=== PATIENT | female | born 1990 | race Two or more races ===

== ENCOUNTER 2017-08-09 15:07 | Inpatient (IN) | payer OTHER ==
[2017-08-09 16:21] VITALS: BMI 34.0
--- NOTE | 2017-08-09 16:35 | HP ---
Admission ROS [facility] - [facility] Chief Complaint: i am here for rehab from pcp and marijuana Allergies/Adverse Reactions: Allergies Allergy/AdvReac Type Severity Reaction Status Date / Time No Known Allergies Allergy Verified 08/09/17 16:20 History of Present Illness: this 26 years old female with pcp and marijuana dependence,seeking rehab,last treatment [facility] in 2014 nicotine dependence bipolar disorder - Ebola screening Have you traveled outside of the country in the last 21 days: No Have you had contact with anyone from an Ebola affected area: No Have you been sick,other than usual withdrawal symptoms: No Do you have a fever: No - Review of Systems Constitutional: No Symptoms Reported EENT: reports: No Symptoms Reported Respiratory: reports: No Symptoms reported Cardiac: reports: No Symptoms Reported GI: reports: No Symptoms Reported : reports: No Symptoms Reported Musculoskeletal: reports: No Symptoms Reported Integumentary: reports: No Symptoms Reported Neuro: reports: No Symptoms reported Endocrine: reports: No Symptoms Reported Hematology: reports: No Symptoms Reported Psychiatric: reports: No Sypmtoms Reported, Judgement Intact, Mood/Affect Appropiate, Orientated x3 (bipolar disorder) Patient History - Patient Medical History Hx Anemia: No Hx Asthma: No Hx Chronic Obstructive Pulmonary Disease (COPD): No Hx Cancer: No Hx Cardiac Disorders: No Hx Hypertension: No Hx Hypercholesterolemia: No Hx Pacemaker: No HX Cerebrovascular Accident: No Hx Seizures: No Hx Diabetes: No Hx Gastrointestinal Disorders: Yes (GASTRITIS) Hx Genitourinary Disorders: Yes (RENAL CALCULI) Hx Sexually Transmitted Disorders: No Hx Renal Disease (ESRD): No Hx Thyroid Disease: No Hx Human Immunodeficiency Virus (HIV): No Hx Hepatitis C: No Hx Depression: Yes (AND ANXIETY) Hx Suicide Attempt: Yes (pill overdose in 2005) Hx Bipolar Disorder: Yes Hx Schizophrenia: No Other Medical History: no suicidal,no homicidal - Patient Surgical History Past Surgical History: No Hx Neurologic Surgery: No Hx Cataract Extraction: No Hx Cardiac Surgery: No Hx Lung Surgery: No Hx Breast Surgery: No Hx Breast Biopsy: No Hx Abdominal Surgery: No Hx Appendectomy: No Hx Cholecystectomy: No Hx Genitourinary Surgery: No Hx Section: No Hx Orthopedic Surgery: No Anesthesia Reaction: No - PPD History Previous Implant?: Yes Documented Results: Negative w/o proof Date: 12/31/12 PPD to be Administered?: Yes - Reproductive History Patient is a Female of Child Bearing Age (11 -55 yrs old): Yes Last Menstrual Period: 07/07/17 Patient : No - Smoking Cessation Smoking history: Current every day smoker Have you smoked in the past 12 months: Yes Aproximately how many cigarettes per day: 5 Hx Chewing Tobacco Use: No Initiated information on smoking cessation: Yes 'Breaking Loose' booklet given: 08/09/17 - Substance & Tx. History Hx Alcohol Use: No Hx Substance Use: Yes Substance Use Type: Marijuana Hx Substance Use Treatment: Yes ([facility] 2014) - Substances Abused PCP Route: Smoking Frequency: 3-6 times per week Amount used: 5-6 blunts Age of first use: 19 Date of Last Use: 08/05/17 Marijuana/Hashish Route: Smoking Frequency: 1-2 times per week Amount used: 1-2 blunts Age of first use: 14 Date of Last Use: 08/08/17 Family Disease History - Family Disease History Family History: Denies Admission Physical Exam [facility] - Vital Signs Vital Signs: Vital Signs - 24 hr 08/09/17 16:16 Temperature 97.4 F L Pulse Rate 79 Respiratory 20 Rate Blood Pressure 121/70 - Physical General Appearance: Yes: Within Normal Limits HEENTM: Yes: Normal ENT Inspection, AYALA, Pharynx Normal Respiratory: Yes: Lungs Clear, Normal Breath Sounds, No Respiratory Distress Neck: Yes: Within Normal Limits, Supple, Trachea in good position Breast: Yes: Breast Exam Deferred Cardiology: Yes: Within Normal Limits, Regular Rhythm, Regular Rate, S1, S2 Abdominal: Yes: Within Normal Limits, Normal Bowel Sounds, Non Tender, Flat, Soft Genitourinary: Yes: Within Normal Limits Back: Yes: Within Normal Limits Musculoskeletal: Yes: Within Normal Limits Extremities: Yes: Normal Capillary Refill, Normal Inspection, Normal Range of Motion Neurological: Yes: mangle tender II-XII NML intact, Alert, Motor Strength 5/5 Integumentary: Yes: Within Normal Limits Lymphatic: Yes: Within Normal Limits - Diagnostic (1) Cannabis dependence Current Visit: No Status: Active (2) Gastritis Current Visit: No Status: Active (3) MDMA DEPENDENCE Current Visit: No Status: Active (4) PCP DEPENDENCE Current Visit: No Status: Active (5) Nicotine dependence Current Visit: Yes Status: Acute (6) Renal calculus Current Visit: Yes Status: Acute Cleared for Admission [facility] - Detox or Rehab Claeared for Rehab Admission: Yes [facility] Breath Alcohol Content Breath Alcohol Content: 0 Urine Pregancy Test - Result Urine Test Results: Negative- NO Line Present Urine Drug Screen - Results Drug Screen Negative: No Urine Drug Screen Results: THC-Marijuana, PCP-Phencyclidine Inpatient Rehab Admission - Initial Determination Are CD services needed?: Yes Free of communicable disease: Yes Not in need of hospitalization: Yes - Rehab Admission Criteria Poor recovery environment: Yes Comorbidities: Yes Patient is meeting Inpatient Rehab admission criteria:: Yes
[2017-08-09] MEDS ORDERED: P-EPHED 60MG/TRIPROLIDI 2.5MG TABLET PO PRN (16:45)
[2017-08-09] MEDS ORDERED: MAGNESIUM CITRATE 300 ML BOTTLE PO PRN (16:45)
[2017-08-09] MEDS ORDERED: MAGNESIUM HYDROX 2400MG/30ML ORAL SUSPENSION 30 ML CUP PO PRN (16:45)
[2017-08-09] MEDS ORDERED: LOPERAMIDE HCL 2 MG CAPSULE PO PRN (16:45)
[2017-08-09] MEDS ORDERED: MENTHOL/PHENOL 1 EACH UD MM PRN (16:45)
[2017-08-09] MEDS ORDERED: guaiFENesin/D-METHORPHAN HB 10 ML UNIT-DOSE CUPS PO PRN (16:45)
[2017-08-09] MEDS ORDERED: MAG HYDROX/AL HYDROX/SIMETH 30 ML UNIT-DOSE CUP PO PRN (16:45)
[2017-08-09] MEDS ORDERED: TUBERCULIN PPD 5 TU/0.1ML VIAL ID ONE (18:36)
[2017-08-09 20:29] LABS: URINE APPEARANCE CLOUDY; URINE BILIRUBIN NEGATIVE (NEGATIVE); URINE BLOOD NEGATIVE (NEGATIVE); URINE COLOR YELLOW; URINE GLUCOSE (UA) NEGATIVE (NEGATIVE); URINE KETONE NEGATIVE (NEGATIVE); URINE NITRITE NEGATIVE (NEGATIVE); URINE PROTEIN NEGATIVE (NEGATIVE); URINE UROBILINOGEN NEGATIVE mg/dL (0.2-1.0)
[2017-08-09] MEDS: THIAMINE HCL 100 MG TABLET (FP) PO SCH (21:49)
[2017-08-09 21:55] LABS: URINE LEUK ESTERASE Negative (NEGATIVE)
[2017-08-09] MEDS: QUEtiapine FUMARATE 50 MG TABLET PO SCH (23:00)
--- NOTE | 2017-08-09 23:44 | PN ---
[facility] Progress Note Note: Psychiatry Attending's property economist note : Informed by nurse of this new admission to unit. Asked to enter orders for buspar + depakote + seroquel. Case of 26 y/o female with Bipolar Disorder. Co-morbidities : marihuana,phencyclidine and nicotine dependence. Ms Agee reports OPD care at [facility] ([facility]). Claims : buspar 5 mg po tid depakote 500 mg po am + 750 mg po hs seroquel 50 mg po hs. Verified by recent scripts (filled at [facility] on 07/23/17). Patient endorses adherence to medications.Interviewed via telephone. Conversant,calm and appropriate.Cooperative.Complaints : none.Normal vitals. Plan as follows : Hold depakote until specimen drawn for valproic acid level. Resume buspar and seroquel (at doses mentioned above). Side effects/benefits : discussed with the patient. [facility] report : read and appreciated. test is negative. Discussed with nurse on duty.Patient agrees with careplan.
[2017-08-10] MEDS: busPIRone HCL 5 MG TABLET PO SCH ×3 (07:06→21:32)
[2017-08-10] MEDS: PRENATAL VITAMINS W/ FOLIC ACID TABLET (FP) PO SCH (10:14)
[2017-08-10 11:04] LABS: MCH 21.2 pg (25.7-33.7); MCHC 31.1 g/dl (32.0-36.0); MEAN CELL VOLUME 68.1 fl (80-96); PLATELET COUNT 284 K/MM3 (134-434); WHITE BLOOD COUNT 11.3 K/mm3 (4.0-10.0)
[2017-08-10 11:06] LABS: ALBUMIN 2.8 g/dl (3.4-5.0); ANION GAP 6 (8-16); CO2 26 mmol/L (21-32); CREATININE 0.6 mg/dL (0.55-1.02); GLUCOSE,RANDOM 68 mg/dL (74-106); SGOT/AST 9 U/L (15-37); SGPT/ALT 19 U/L (12-78)
--- NOTE | 2017-08-10 12:33 | PN ---
S Progress Note Note: Psychiatry Attending's note : Met with the patient. Valproic acid level = 4.198 Abnormal CBC. NOT suitable for traetment with valproate. Medical consult to follow.
--- NOTE | 2017-08-10 12:52 | EKG ---
Test Reason : Blood Pressure : / mmHG Vent. Rate : 058 BPM Atrial Rate : 058 BPM P-R Int : 124 ms QRS Dur : 090 ms QT Int : 426 ms P-R-T Axes : 045 055 045 degrees QTc Int : 418 ms SINUS BRADYCARDIA NO PREVIOUS ECGS AVAILABLE Confirmed by ALMA CHAVIS MD ([id number]) on 08/10/2017 12:51:52 PM Referred By: Confirmed By:ALMA CHAVIS MD
[2017-08-10 12:54] LABS: ALK PHOS 58 U/L (45-117); BILIRUBIN,TOTAL 0.3 mg/dL (0.2-1.0); TOT PROT 5.9 g/dl (6.4-8.2)
[2017-08-10] MEDS ORDERED: PT OWN MED DRAWER 7, Y5N ONE (13:10)
[2017-08-10 13:26] LABS: HIV 1 & 2 AB NEGATIVE; HIV 1 AGp24 NEGATIVE
[2017-08-10 13:29] LABS: CALCIUM 7.8 mg/dL (8.5-10.1)
[2017-08-10] MEDS: THIAMINE HCL 100 MG TABLET (FP) PO SCH (21:31)
[2017-08-10] MEDS: QUEtiapine FUMARATE 50 MG TABLET PO SCH (21:31)
[2017-08-10] MEDS ORDERED: QUEtiapine FUMARATE 50 MG TABLET PO SCH (22:00)
[2017-08-11] MEDS ORDERED: PT OWN MED DRAWER 7, Y5N ONE ×2 (05:39→12:45)
[2017-08-11] MEDS: busPIRone HCL 5 MG TABLET PO SCH ×3 (06:59→21:24)
[2017-08-11] MEDS: PRENATAL VITAMINS W/ FOLIC ACID TABLET (FP) PO SCH (09:14)
[2017-08-11] MEDS: IBUPROFEN 400 MG TABLET (FP) PO PRN (09:14)
[2017-08-11] MEDS: ACETAMINOPHEN 325 MG TABLET (FP) PO PRN (12:30)
[2017-08-11] MEDS: THIAMINE HCL 100 MG TABLET (FP) PO SCH (21:24)
[2017-08-11] MEDS: QUEtiapine FUMARATE 50 MG TABLET PO SCH (21:24)
[2017-08-12] MEDS ORDERED: PT OWN MED DRAWER 7, Y5N ONE ×3 (05:49→15:50)
[2017-08-12] MEDS: busPIRone HCL 5 MG TABLET PO SCH (06:42)
[2017-08-12] MEDS: PRENATAL VITAMINS W/ FOLIC ACID TABLET (FP) PO SCH (09:55)
--- NOTE | 2017-08-12 11:04 | HP ---
Psychiatrist Admission - Data Date of interview: 08/12/17 Admission source: [facility] Identifying data: This is the first admission to [address] [place] [address] for this 26 years od single H female mother of 3 years old daughter(child resides with the patient's parents).Patient is homeless, unemployed,supported by family. Medical History: unremarkable Psychiatric History: First contact with psychiatrist was at 15 years old when she addressed her depressed mood,anxiety .Patient was seen by psychiatrist at [facility] OPD,dx with MDD and placed on Prozac which she was not taking.Reports she was dx with Bipolar disordetr about 3 years ago when she was admitted to [facility] due to manic episode.Patient was treated with Serqouel.She was placed on Depakote only about 1 year ago.Patient reports about 10 psychiatric hospitalizations.Most recent was 3 weeks ago to [facility] 3 weeks ago due to drug use and non compliance with medications.Patient reports about 4-5 suicidal attempts (DOD).Patient sees psychiatrist at [facility] OPD.Current medications:Depakote 500 mg po am and 750 mg po hs and Seroquel 50 mg po hs(recently adjusted to 100 mg po hs). Blood level of Depakote (drawn on saturday) is 4,198 (low). Physical/Sexual Abuse/Trauma History: not willing to discuss Vital Signs: Vital Signs - 24 hr 08/12/17 08/12/17 08/12/17 00:30 03:30 07:29 Temperature 97.9 F Pulse Rate 52 L Respiratory 16 16 18 Rate Blood Pressure 106/71 Allergies/Adverse Reactions: Allergies Allergy/AdvReac Type Severity Reaction Status Date / Time No Known Allergies Allergy Verified 08/09/17 16:20 Date of last physical exam: 08/09/17 Concur with the findings of this exam: Yes - Substance Abuse/Tx History Hx Alcohol Use: Yes Hx Substance Use: Yes Substance Use Type: Alcohol, Cocaine, Marijuana Hx Substance Use Treatment: Yes Mental Status Exam - Mental Status Exam Alert and Oriented to: Time, Place, Person Cognitive Function: Grossly Intact Patient Appearance: Well Groomed Mood: Nervous, Anxious Affect: Labile Patient Behavior: Cooperative Speech Pattern: Clear Voice Loudness: Normal Thought Process: Goal Oriented Thought Disorder: Not Present Hallucinations: Denies Suicidal Ideation: Denies Homicidal Ideation: Denies Insight/Judgement: Fair Sleep: Fair Appetite: Good Muscle strength/Tone: Normal Gait/Station: Normal Psychiatric Findings - Problem List ([place] 1, 2,3) (1) Nicotine dependence Current Visit: Yes Status: Chronic (2) Renal calculus Current Visit: Yes Status: Chronic (3) Alcohol dependence Current Visit: Yes Status: Chronic (4) Cannabis dependence Current Visit: Yes Status: Chronic (5) Gastritis Current Visit: Yes Status: Resolved (6) MDMA DEPENDENCE Current Visit: Yes Status: Chronic (7) PCP dependence Current Visit: Yes Status: Chronic - Initial Treatment Plan Initial Treatment Plan: Continue Depakote 500 mg po daily and 750 mg po hs and Seroquel 100 mg po hs,Buspar 5 mg po tid.
[2017-08-12] MEDS: DIVALPROEX SODIUM 500 MG TABLET E.C. PO SCH (12:08)
[2017-08-12] MEDS: busPIRone HCL 10 MG TABLET (FP) PO SCH ×2 (12:08→21:21)
[2017-08-12] MEDS: hydrOXYzine PAMOATE 50 MG CAPSULE (FP) PO PRN (17:56)
[2017-08-12] MEDS: THIAMINE HCL 100 MG TABLET (FP) PO SCH (21:21)
[2017-08-12] MEDS: QUEtiapine FUMARATE 100 MG TABLET (FP) PO SCH (21:22)
[2017-08-12] MEDS: DIVALPROEX SODIUM 250 MG TABLET E.C. (FP) PO SCH (21:22)
[2017-08-13] MEDS ORDERED: PT OWN MED DRAWER 7, Y5N ONE (08:30)
[2017-08-13] MEDS: PRENATAL VITAMINS W/ FOLIC ACID TABLET (FP) PO SCH (09:22)
[2017-08-13] MEDS: DIVALPROEX SODIUM 500 MG TABLET E.C. PO SCH (09:22)
[2017-08-13] MEDS: busPIRone HCL 10 MG TABLET (FP) PO SCH ×2 (09:22→21:29)
[2017-08-13] MEDS: IBUPROFEN 400 MG TABLET (FP) PO PRN (09:22)
[2017-08-13] MEDS: DIVALPROEX SODIUM 250 MG TABLET E.C. (FP) PO SCH (21:28)
[2017-08-13] MEDS: THIAMINE HCL 100 MG TABLET (FP) PO SCH (21:28)
[2017-08-13] MEDS: diphenhydrAMINE HCL 50 MG CAPSULE PO PRN (21:29)
[2017-08-13] MEDS: QUEtiapine FUMARATE 100 MG TABLET (FP) PO SCH (21:29)
[2017-08-14] MEDS: PRENATAL VITAMINS W/ FOLIC ACID TABLET (FP) PO SCH (10:15)
[2017-08-14] MEDS: busPIRone HCL 10 MG TABLET (FP) PO SCH ×2 (10:15→21:30)
[2017-08-14] MEDS: DIVALPROEX SODIUM 500 MG TABLET E.C. PO SCH (10:15)
[2017-08-14] MEDS: IBUPROFEN 400 MG TABLET (FP) PO PRN (12:46)
[2017-08-14] MEDS: QUEtiapine FUMARATE 100 MG TABLET (FP) PO SCH (21:30)
[2017-08-14] MEDS: THIAMINE HCL 100 MG TABLET (FP) PO SCH (21:30)
[2017-08-14] MEDS: DIVALPROEX SODIUM 250 MG TABLET E.C. (FP) PO SCH (21:30)
[2017-08-14] MEDS: diphenhydrAMINE HCL 50 MG CAPSULE PO PRN (21:31)
[2017-08-15] MEDS: busPIRone HCL 10 MG TABLET (FP) PO SCH ×2 (10:11→21:26)
[2017-08-15] MEDS: PRENATAL VITAMINS W/ FOLIC ACID TABLET (FP) PO SCH (10:11)
[2017-08-15] MEDS: DIVALPROEX SODIUM 500 MG TABLET E.C. PO SCH (10:11)
[2017-08-15] MEDS: THIAMINE HCL 100 MG TABLET (FP) PO SCH (21:26)
[2017-08-15] MEDS: QUEtiapine FUMARATE 100 MG TABLET (FP) PO SCH (21:26)
[2017-08-15] MEDS: DIVALPROEX SODIUM 250 MG TABLET E.C. (FP) PO SCH (21:26)
[2017-08-16] MEDS: busPIRone HCL 10 MG TABLET (FP) PO SCH ×2 (10:32→21:32)
[2017-08-16] MEDS: PRENATAL VITAMINS W/ FOLIC ACID TABLET (FP) PO SCH (10:32)
[2017-08-16] MEDS: DIVALPROEX SODIUM 500 MG TABLET E.C. PO SCH (10:32)
[2017-08-16] MEDS: IBUPROFEN 400 MG TABLET (FP) PO PRN (15:28)
[2017-08-16] MEDS: hydrOXYzine PAMOATE 50 MG CAPSULE (FP) PO PRN (20:07)
[2017-08-16] MEDS: DIVALPROEX SODIUM 250 MG TABLET E.C. (FP) PO SCH (21:32)
[2017-08-16] MEDS: THIAMINE HCL 100 MG TABLET (FP) PO SCH (21:32)
[2017-08-16] MEDS: QUEtiapine FUMARATE 100 MG TABLET (FP) PO SCH (21:32)
[2017-08-17] MEDS: busPIRone HCL 10 MG TABLET (FP) PO SCH ×2 (09:49→21:23)
[2017-08-17] MEDS: PRENATAL VITAMINS W/ FOLIC ACID TABLET (FP) PO SCH (09:49)
[2017-08-17] MEDS: DIVALPROEX SODIUM 500 MG TABLET E.C. PO SCH (09:49)
[2017-08-17] MEDS: hydrOXYzine PAMOATE 50 MG CAPSULE (FP) PO PRN (19:41)
[2017-08-17] MEDS: DIVALPROEX SODIUM 250 MG TABLET E.C. (FP) PO SCH (21:23)
[2017-08-17] MEDS: QUEtiapine FUMARATE 100 MG TABLET (FP) PO SCH (21:23)
[2017-08-17] MEDS: THIAMINE HCL 100 MG TABLET (FP) PO SCH (21:23)
[2017-08-17] MEDS: diphenhydrAMINE HCL 50 MG CAPSULE PO PRN (21:24)
[2017-08-18] MEDS: busPIRone HCL 10 MG TABLET (FP) PO SCH ×2 (10:05→21:25)
[2017-08-18] MEDS: DIVALPROEX SODIUM 500 MG TABLET E.C. PO SCH (10:05)
[2017-08-18] MEDS: PRENATAL VITAMINS W/ FOLIC ACID TABLET (FP) PO SCH (10:05)
[2017-08-18] MEDS: DIVALPROEX SODIUM 250 MG TABLET E.C. (FP) PO SCH (21:25)
[2017-08-18] MEDS: QUEtiapine FUMARATE 100 MG TABLET (FP) PO SCH (21:25)
[2017-08-18] MEDS: diphenhydrAMINE HCL 50 MG CAPSULE PO PRN (21:26)
[2017-08-18] MEDS: THIAMINE HCL 100 MG TABLET (FP) PO SCH (21:26)
[2017-08-18] MEDS ORDERED: PT OWN MED DRAWER 7, Y5N ONE (22:01)
[2017-08-19] MEDS: PRENATAL VITAMINS W/ FOLIC ACID TABLET (FP) PO SCH (10:29)
[2017-08-19] MEDS: busPIRone HCL 10 MG TABLET (FP) PO SCH ×2 (10:29→21:46)
[2017-08-19] MEDS: DIVALPROEX SODIUM 500 MG TABLET E.C. PO SCH (10:29)
[2017-08-19] MEDS: hydrOXYzine PAMOATE 50 MG CAPSULE (FP) PO PRN (11:40)
--- NOTE | 2017-08-19 12:44 | PN ---
Psychiatric Progress Note Vital Signs: Vital Signs Period Temp Pulse Resp BP Sys/Betts Pulse Ox Last 24 Hr 97.4 F 68 18-18 110/66 Date of Session: 08/19/17 Current Medications: Active Medications Generic Name Dose Route Start Last Admin Trade Name Freq PRN Reason Stop Dose Admin Acetaminophen 650 mg 08/09/17 16:45 08/11/17 12:30 Tylenol - PO 650 mg Q4H PRN Administration PAIN Al Hydroxide/Mg Hydroxide 30 ml 08/09/17 16:45 Mylanta Oral Suspension - PO Q6H PRN DYSPEPSIA Buspirone HCl 10 mg 08/12/17 11:30 08/19/17 10:29 Buspar - PO 10 mg BID JIMI Administration Diphenhydramine HCl 50 mg 08/09/17 16:45 08/18/17 21:26 Benadryl - PO 50 mg HSMR1 PRN Administration INSOMNIA Docusate Sodium 300 mg 08/19/17 22:00 Colace - PO HS JIMI Eucalyptus/Menthol/Phenol/Sorbitol 1 each 08/09/17 16:45 Cepastat Lozenge - MM Q4H PRN SORE THROAT Ferrous Sulfate 325 mg 08/19/17 17:30 Feosol - PO TIDCM JIMI Guaifenesin 10 ml 08/09/17 16:45 Robitussin Dm - PO Q6H PRN COUGH Hydroxyzine Pamoate 50 mg 08/09/17 16:45 08/19/17 11:40 Vistaril - PO 50 mg Q4H PRN Administration AGITATION Loperamide HCl 4 mg 08/09/17 16:45 Imodium - PO Q6H PRN DIARRHEA Magnesium Citrate 300 ml 08/09/17 16:45 Citroma - PO Q48H PRN CONSTIPATION Magnesium Hydroxide 30 ml 08/09/17 16:45 Milk Of Magnesia - PO DAILY PRN CONSTIPATION Multivit/Folic Acid/Iron 1 tab 08/10/17 10:00 08/19/17 10:29 Vitamins (Sjr) - PO 1 tab DAILY JIMI Administration Pseudoephedrine/Triprolidine 1 combo 08/09/17 16:45 Actifed - PO TID PRN NASAL CONGESTION Quetiapine Fumarate 100 mg 08/12/17 22:00 08/18/17 21:25 Seroquel - PO 100 mg HS JIMI Administration Thiamine HCl 100 mg 08/09/17 22:00 08/18/17 21:26 Vitamin B1 - PO 100 mg HS JIMI Administration
--- NOTE | 2017-08-19 12:44 | PN ---
[facility] Progress Note Note: Patient noted to have anemia on admission, d/w dr. Overton, will change to alternative mood stabilizer repeat labs with iron studies, iron supplements, folic acit and thiamine
--- NOTE | 2017-08-19 14:05 | PN ---
Psychiatric Progress Note Vital Signs: Vital Signs Period Temp Pulse Resp BP Sys/Betts Pulse Ox Last 24 Hr 97.4 F 68 18-18 110/66 Date of Session: 08/19/17 Chief Complaint:: " I cannot sleep at night.My dose of seroquel is not enough." HPI: Uneventful rehabilitation course except for complaint of insomnia.Not responding to current dose of seroquel. ROS: Unremarkable.Patient is ambulatory.Visible on the unit.Cognition : intact. Current Medications: Active Medications Generic Name Dose Route Start Last Admin Trade Name Freq PRN Reason Stop Dose Admin Acetaminophen 650 mg 08/09/17 16:45 08/11/17 12:30 Tylenol - PO 650 mg Q4H PRN Administration PAIN Al Hydroxide/Mg Hydroxide 30 ml 08/09/17 16:45 Mylanta Oral Suspension - PO Q6H PRN DYSPEPSIA Buspirone HCl 10 mg 08/12/17 11:30 08/19/17 10:29 Buspar - PO 10 mg BID JIMI Administration Diphenhydramine HCl 50 mg 08/09/17 16:45 08/18/17 21:26 Benadryl - PO 50 mg HSMR1 PRN Administration INSOMNIA Docusate Sodium 300 mg 08/19/17 22:00 Colace - PO HS JIMI Eucalyptus/Menthol/Phenol/Sorbitol 1 each 08/09/17 16:45 Cepastat Lozenge - MM Q4H PRN SORE THROAT Ferrous Sulfate 325 mg 08/19/17 17:30 Feosol - PO TIDCM JIMI Guaifenesin 10 ml 08/09/17 16:45 Robitussin Dm - PO Q6H PRN COUGH Hydroxyzine Pamoate 50 mg 08/09/17 16:45 08/19/17 11:40 Vistaril - PO 50 mg Q4H PRN Administration AGITATION Loperamide HCl 4 mg 08/09/17 16:45 Imodium - PO Q6H PRN DIARRHEA Magnesium Citrate 300 ml 08/09/17 16:45 Citroma - PO Q48H PRN CONSTIPATION Magnesium Hydroxide 30 ml 08/09/17 16:45 Milk Of Magnesia - PO DAILY PRN CONSTIPATION Multivit/Folic Acid/Iron 1 tab 08/10/17 10:00 08/19/17 10:29 Vitamins (Sjr) - PO 1 tab DAILY JIMI Administration Pseudoephedrine/Triprolidine 1 combo 08/09/17 16:45 Actifed - PO TID PRN NASAL CONGESTION Quetiapine Fumarate 200 mg 08/19/17 22:00 Seroquel - PO HS JIMI Thiamine HCl 100 mg 08/09/17 22:00 08/18/17 21:26 Vitamin B1 - PO 100 mg HS JIMI Administration Medication(s) Change(s): Seroquel is raised to 200 mg po hs.Side effects/ benefits are discussed with the patient.Ms Agee is in agreement with this careplan. Current Side Effect: No Lab tests ordered: Yes Lab tests reviewed: Yes Provider note:: Medications are revisited.Labs are reviewed.Abnormal CBC is noted.Discussed with the medical attending,Dr Patiño (see medical note of 08/19).Met with patient.Doing fine.Concerned about persistent insomnia.Patient requests an increase in the seroquel dose.Done.Strapper Operator has made patient aware of her abnormal labs.Informed patient of plan to discontinue valproate (in the context of anemia of unknown etiology).She agrees with this plan of care.Switch to an alternate mood stabilizer : currently being discussed with the patient. Total face to face time:: 30 Mental Status Exam - Mental Status Exam Alert and Oriented to: Time, Place, Person Cognitive Function: Good Patient Appearance: Well Groomed Mood: Hopeful, Euthymic Affect: Appropriate, Normal Range Patient Behavior: Appropriate, Cooperative Speech Pattern: Clear, Appropriate Voice Loudness: Normal Thought Process: Intact, Goal Oriented Thought Disorder: Not Present Hallucinations: Denies Suicidal Ideation: Denies Homicidal Ideation: Denies Insight/Judgement: Good Sleep: Poorly, Difficulty falling asleep Appetite: Good Muscle strength/Tone: Normal Gait/Station: Normal Psychiatric Treatment Plan - Problem List (1) Alcohol dependence Current Visit: Yes (2) Cannabis dependence Current Visit: Yes (3) MDMA DEPENDENCE Current Visit: Yes (4) Nicotine dependence Current Visit: Yes (5) PCP dependence Current Visit: Yes (6) Substance induced mood disorder Current Visit: Yes (7) Insomnia Current Visit: Yes
[2017-08-19] MEDS: FERROUS SO4 325 MG TABLET (FP) PO SCH (17:25)
[2017-08-19] MEDS: THIAMINE HCL 100 MG TABLET (FP) PO SCH (21:47)
[2017-08-19] MEDS: DOCUSATE SODIUM 100 MG CAPSULE (FP) PO SCH (21:48)
[2017-08-19] MEDS: QUEtiapine FUMARATE 200 MG TABLET PO SCH (21:48)
[2017-08-20] MEDS: FERROUS SO4 325 MG TABLET (FP) PO SCH ×3 (07:08→17:45)
[2017-08-20] MEDS: PRENATAL VITAMINS W/ FOLIC ACID TABLET (FP) PO SCH (09:39)
[2017-08-20] MEDS: busPIRone HCL 10 MG TABLET (FP) PO SCH ×2 (09:39→23:22)
[2017-08-20] MEDS ORDERED: PT OWN MED DRAWER 7, Y5N ONE (10:45)
[2017-08-20 15:55] LABS: ALBUMIN 2.9 g/dl (3.4-5.0); ANION GAP 5 (8-16); BILIRUBIN,TOTAL 0.2 mg/dL (0.2-1.0); CALCIUM 8.1 mg/dL (8.5-10.1); CO2 29 mmol/L (21-32); CREATININE 0.7 mg/dL (0.55-1.02); GLUCOSE,RANDOM 71 mg/dL (74-106); SGOT/AST 9 U/L (15-37); SGPT/ALT 22 U/L (12-78); TOT PROT 6.6 g/dl (6.4-8.2)
[2017-08-20 15:58] LABS: ALK PHOS 70 U/L (45-117); FERRITIN 6.634 ng/ml (6.9-282.5)
[2017-08-20 16:03] LABS: BASOPHIL 0.3 % (0-2.0); EOSINOPHIL 4.3 % (0-4.5); MCH 21.9 pg (25.7-33.7); MCHC 32.1 g/dl (32.0-36.0); MEAN CELL VOLUME 68.3 fl (80-96); MEAN PLT VOLUME 8.4 fl (7.5-11.1); NEUTROPHILS 50.1 % (42.8-82.8); PLATELET COUNT 330 K/MM3 (134-434); RDW 23.2 % (11.6-15.6); WHITE BLOOD COUNT 7.7 K/mm3 (4.0-10.0)
[2017-08-20] MEDS: ACETAMINOPHEN 325 MG TABLET (FP) PO PRN (17:09)
[2017-08-20 17:46] LABS: ANISOCYTOSIS 2+; HYPOCHROMIA 1+; MICROCYTOSIS 1+; PLATELET ESTIMATE ADEQUATE (NORMAL); POLYCHROMASIA F
--- NOTE | 2017-08-20 19:36 | PN ---
[facility] Progress Note Note: Patient was seen and examined at bedside with complaints rectal bleeding, lightheadedness and dizziness. She reports h/o anemia and significant rectal clots x 2 days. Patient's WBC on 08/10/17 was 11.3 k/mm3 and 08/20/17 is 7.7 k/ mm3. Patient is being transferred to [facility] ER for further evaluation. Endorsed to Ms. So Marquez RN and Jacques Zamora NP.
[2017-08-20] MEDS: THIAMINE HCL 100 MG TABLET (FP) PO SCH (23:22)
[2017-08-20] MEDS: DOCUSATE SODIUM 100 MG CAPSULE (FP) PO SCH (23:22)
[2017-08-20] MEDS: QUEtiapine FUMARATE 200 MG TABLET PO SCH (23:22)
[2017-08-21] MEDS: diphenhydrAMINE HCL 50 MG CAPSULE PO PRN (01:59)
[2017-08-21] MEDS: FERROUS SO4 325 MG TABLET (FP) PO SCH ×3 (07:02→16:20)
[2017-08-21 08:08] LABS: SERUM IRON 40 ug/dL (27-159); TOTAL IRON BINDING CAPACITY 421 ug/dL (250-450); UIBC 381 ug/dL (131-425)
[2017-08-21] MEDS: PRENATAL VITAMINS W/ FOLIC ACID TABLET (FP) PO SCH (10:21)
[2017-08-21] MEDS: busPIRone HCL 10 MG TABLET (FP) PO SCH ×2 (10:21→21:20)
[2017-08-21] MEDS: ACETAMINOPHEN 325 MG TABLET (FP) PO PRN (13:36)
[2017-08-21] MEDS: LURASIDONE HCL 20 MG TABLET PO SCH (16:20)
[2017-08-21] MEDS: QUEtiapine FUMARATE 200 MG TABLET PO SCH (21:20)
[2017-08-21] MEDS: DOCUSATE SODIUM 100 MG CAPSULE (FP) PO SCH (21:20)
[2017-08-21] MEDS: THIAMINE HCL 100 MG TABLET (FP) PO SCH (21:20)
[2017-08-22] MEDS: FERROUS SO4 325 MG TABLET (FP) PO SCH ×3 (07:02→18:25)
[2017-08-22] MEDS: PRENATAL VITAMINS W/ FOLIC ACID TABLET (FP) PO SCH (10:18)
[2017-08-22] MEDS: LURASIDONE HCL 20 MG TABLET PO SCH (10:18)
[2017-08-22] MEDS: busPIRone HCL 10 MG TABLET (FP) PO SCH ×2 (10:18→21:26)
--- NOTE | 2017-08-22 12:46 | PN ---
[facility] Progress Note Note: note h/h improved will re check 08/26 pt vs stable fu labs Vital Signs - 24 hr 08/22/17 08/22/17 08/22/17 00:30 03:30 07:26 Temperature 97.4 F L Pulse Rate 49 L Respiratory 18 18 18 Rate Blood Pressure 116/75 Laboratory Tests 08/09/17 08/10/17 08/10/17 19:00 08:00 08:00 WBC 11.3 H RBC 4.11 Hgb 8.7 L D Hct 28.0 L D MCV 68.1 L MCH 21.2 L MCHC 31.1 L RDW 22.0 H D Plt Count 284 MPV 9.0 Neutrophils % Lymphocytes % Monocytes % Eosinophils % Basophils % Hypochromia Platelet Estimate Platelet Comment Polychromasia Anisocytosis Microcytosis Sodium 139 Potassium 4.0 Chloride 107 Carbon Dioxide 26 Anion Gap 6 L BUN 11 D Creatinine 0.6 Creat Clearance w eGFR > 60 Random Glucose 68 L Calcium 7.8 L Iron TIBC Iron Saturation Ferritin Total Bilirubin 0.3 D AST 9 L D ALT 19 D Alkaline Phosphatase 58 D Total Protein 5.9 L Albumin 2.8 L D Urine Color Yellow Urine Appearance Cloudy Urine pH 6.0 Ur Specific Crescent 1.020 Urine Protein Negative Urine Glucose (UA) Negative Urine Ketones Negative Urine Blood Negative Urine Nitrite Negative Urine Bilirubin Negative Urine Urobilinogen Negative Ur Leukocyte Esterase Negative Valproic Acid RPR Titer HIV 1&2 Antibody Screen HIV P24 Antigen 08/10/17 08/10/17 08/10/17 08:00 08:00 08:00 WBC RBC Hgb Hct MCV MCH MCHC RDW Plt Count MPV Neutrophils % Lymphocytes % Monocytes % Eosinophils % Basophils % Hypochromia Platelet Estimate Platelet Comment Polychromasia Anisocytosis Microcytosis Sodium Potassium Chloride Carbon Dioxide Anion Gap BUN Creatinine Creat Clearance w eGFR Random Glucose Calcium Iron TIBC Iron Saturation Ferritin Total Bilirubin AST ALT Alkaline Phosphatase Total Protein Albumin Urine Color Urine Appearance Urine pH Ur Specific Crescent Urine Protein Urine Glucose (UA) Urine Ketones Urine Blood Urine Nitrite Urine Bilirubin Urine Urobilinogen Ur Leukocyte Esterase Valproic Acid 4.198 L RPR Titer Nonreactive HIV 1&2 Antibody Screen Negative HIV P24 Antigen Negative 08/20/17 08/20/17 08/20/17 09:00 09:00 09:00 WBC 7.7 D RBC 4.58 Hgb 10.0 L D Hct 31.3 L MCV 68.3 L MCH 21.9 L MCHC 32.1 RDW 23.2 H Plt Count 330 MPV 8.4 Neutrophils % 50.1 Lymphocytes % 38.7 Monocytes % 6.6 Eosinophils % 4.3 Basophils % 0.3 Hypochromia 1+ Platelet Estimate Adequate Platelet Comment No clumping noted Polychromasia F Anisocytosis 2+ Microcytosis 1+ Sodium 140 Potassium 4.3 Chloride 106 Carbon Dioxide 29 Anion Gap 5 L BUN 15 D Creatinine 0.7 Creat Clearance w eGFR > 60 Random Glucose 71 L Calcium 8.1 L Iron 40 TIBC 421 Iron Saturation 10 L Ferritin 6.634 L Total Bilirubin 0.2 D AST 9 L ALT 22 Alkaline Phosphatase 70 D Total Protein 6.6 Albumin 2.9 L Urine Color Urine Appearance Urine pH Ur Specific Crescent Urine Protein Urine Glucose (UA) Urine Ketones Urine Blood Urine Nitrite Urine Bilirubin Urine Urobilinogen Ur Leukocyte Esterase Valproic Acid RPR Titer HIV 1&2 Antibody Screen HIV P24 Antigen
[2017-08-22] MEDS: QUEtiapine FUMARATE 200 MG TABLET PO SCH (21:26)
[2017-08-22] MEDS: THIAMINE HCL 100 MG TABLET (FP) PO SCH (21:26)
[2017-08-22] MEDS: DOCUSATE SODIUM 100 MG CAPSULE (FP) PO SCH (21:26)
[2017-08-23] MEDS: FERROUS SO4 325 MG TABLET (FP) PO SCH (07:13)
[2017-08-23 07:26] VITALS: BP 111/72; PULSE 64; TEMP 97.7
--- NOTE | 2017-08-23 08:49 | PN ---
Psychiatric Progress Note Vital Signs: Vital Signs Period Temp Pulse Resp BP Sys/Betts Pulse Ox Last 24 Hr 97.7 F 64 16-18 111/72 Date of Session: 08/23/17 Chief Complaint:: Discharge visit Current Medications: Active Medications Generic Name Dose Route Start Last Admin Trade Name Freq PRN Reason Stop Dose Admin Acetaminophen 650 mg 08/09/17 16:45 08/21/17 13:36 Tylenol - PO 650 mg Q4H PRN Administration PAIN Al Hydroxide/Mg Hydroxide 30 ml 08/09/17 16:45 Mylanta Oral Suspension - PO Q6H PRN DYSPEPSIA Buspirone HCl 10 mg 08/12/17 11:30 08/22/17 21:26 Buspar - PO 10 mg BID JIMI Administration Diphenhydramine HCl 50 mg 08/09/17 16:45 08/21/17 01:59 Benadryl - PO 50 mg HSMR1 PRN Administration INSOMNIA Docusate Sodium 300 mg 08/19/17 22:00 08/22/17 21:26 Colace - PO 300 mg HS JIMI Administration Eucalyptus/Menthol/Phenol/Sorbitol 1 each 08/09/17 16:45 Cepastat Lozenge - MM Q4H PRN SORE THROAT Ferrous Sulfate 325 mg 08/19/17 17:30 08/23/17 07:13 Feosol - PO 325 mg TIDCM JIMI Administration Guaifenesin 10 ml 08/09/17 16:45 Robitussin Dm - PO Q6H PRN COUGH Hydroxyzine Pamoate 50 mg 08/09/17 16:45 08/19/17 11:40 Vistaril - PO 50 mg Q4H PRN Administration AGITATION Loperamide HCl 4 mg 08/09/17 16:45 Imodium - PO Q6H PRN DIARRHEA Lurasidone HCl 20 mg 08/21/17 14:38 08/22/17 10:18 Latuda - PO 20 mg DAILY JIMI Administration Magnesium Citrate 300 ml 08/09/17 16:45 Citroma - PO Q48H PRN CONSTIPATION Magnesium Hydroxide 30 ml 08/09/17 16:45 Milk Of Magnesia - PO DAILY PRN CONSTIPATION Multivit/Folic Acid/Iron 1 tab 08/10/17 10:00 08/22/17 10:18 Vitamins (Sjr) - PO 1 tab DAILY JIMI Administration Pseudoephedrine/Triprolidine 1 combo 08/09/17 16:45 Actifed - PO TID PRN NASAL CONGESTION Quetiapine Fumarate 200 mg 08/19/17 22:00 08/22/17 21:26 Seroquel - PO 200 mg HS JIMI Administration Thiamine HCl 100 mg 08/09/17 22:00 08/22/17 21:26 Vitamin B1 - PO 100 mg HS JIMI Administration Current Side Effect: No Lab tests ordered: No Lab tests reviewed: Yes Provider note:: Seroquel 200 mg po hs,Latuda 20 mg po daily and Buspar 10 mg po bid. Total face to face time:: 30 Psychiatric Treatment Plan - Problem List (1) Nicotine dependence Current Visit: Yes (2) Renal calculus Current Visit: Yes (3) Alcohol dependence Current Visit: Yes (4) Cannabis dependence Current Visit: Yes (5) Gastritis Current Visit: Yes (6) MDMA DEPENDENCE Current Visit: Yes (7) PCP dependence Current Visit: No
[2017-08-23] MEDS: PRENATAL VITAMINS W/ FOLIC ACID TABLET (FP) PO SCH (09:00)
[2017-08-23] MEDS: LURASIDONE HCL 20 MG TABLET PO SCH (09:00)
[2017-08-23] MEDS: busPIRone HCL 10 MG TABLET (FP) PO SCH (09:00)
== END 2017-08-23 09:05 | disposition home or self-care (01) | DRG 772 ==
LOC: EDBD → YASAS 15:07 → Y3E 17:02
PROVIDERS: ADMIT Psychiatry & Neurology Psychiatry; ATTEND Psychiatry & Neurology Psychiatry
PROC: HZ42ZZZ Group Counseling for Substance Abuse Treatment, Cognitive-Behavioral (ICD-10-PCS; principal; 2017-08-09)
DX: F10.20 Alcohol dependence, uncomplicated (principal); F16.20 Hallucinogen dependence, uncomplicated; F12.20 Cannabis dependence, uncomplicated; F17.210 Nicotine dependence, cigarettes, uncomplicated; F19.24 Other psychoactive substance dependence with psychoactive substance-induced mood disorder; K62.5 Hemorrhage of anus and rectum; G47.00 Insomnia, unspecified; D64.9 Anemia, unspecified; Z87.442 Personal history of urinary calculi; Z87.19 Personal history of other diseases of the digestive system; Z91.5 Personal history of self-harm
CPT/HCPCS: 36415; 80053; 80164; 81003; 82728; 83540; 83550; 85025; 85027; 86593; 87389; 93005; 93010

== ENCOUNTER 2017-08-20 20:37 | Emergency (ER) | payer OTHER ==
[2017-08-20 20:53] VITALS: TEMP 98.3; BMI 71.5
[2017-08-20] MEDS ORDERED: SODIUM CHLORIDE 1,000 ML IV STA (22:14)
--- NOTE | 2017-08-20 22:17 | PDOC ---
History of Present Illness - General Chief Complaint: Rectal Bleed Stated Complaint: RECTAL BLEED Time Seen by Provider: 08/20/17 22:04 History Source: Patient Exam Limitations: No Limitations - History of Present Illness Travel History: No Initial Comments: 08/20/17 22:37 26yo Female patient w/ PmHx: Substance Abuse (PCP), Blood transfusion, Anemia presents to ED c/o rectal bleeding x 2 days. Patient states she was admitted to [facility] rehab 11 days ago. She had initial blood work at this time, which showed her blood levels were low. Patient had blood work repeated 3 days ago, which showed "levels" were lower. She subsequently developed rectal bleeding around this time. Patient was sent into ED from [facility] for evaluation. Associated Epigastric pain. LNMP: 3 days ago. Past History - Travel Traveled outside of the country in the last 30 days: No Close contact w/someone who was outside of country & ill: No - Past Medical History Allergies/Adverse Reactions: Allergies Allergy/AdvReac Type Severity Reaction Status Date / Time No Known Allergies Allergy Verified 08/20/17 20:51 Home Medications: Ambulatory Orders Buspirone HCl [Buspar -] 5 mg PO TID 08/09/17 Quetiapine Fumarate [Seroquel -] 50 mg PO HS 08/09/17 Anemia: No Asthma: No Cancer: No Cardiac Disorders: No CVA: No COPD: No Diabetes: No GI Disorders: No Disorders: No HTN: No Hypercholesterolemia: No Kidney Stones: No Seizures: No Thyroid Disease: No - Surgical History Abdominal Surgery: No Appendectomy: No Cardiac Surgery: No Cholecystectomy: No Lung Surgery: No Neurologic Surgery: No Orthopedic Surgery: No - Reproductive History PID: No - Suicide/Smoking/Psychosocial Hx Smoking History: Unknown if ever smoked Have you smoked in the past 12 months: Yes Number of Cigarettes Smoked Daily: 5 Information on smoking cessation initiated: No 'Breaking Loose' booklet given: 08/09/17 Hx Alcohol Use: No Drug/Substance Use Hx: No Substance Use Type: Alcohol, Cocaine, Marijuana Hx Substance Use Treatment: Yes Abd/GI Specific PMHX - Complaint Specific PMHX Hepatitis: No Pancreatitis: No Review of Systems - Review of Systems Able to Perform ROS?: Yes Is the patient limited Malagasy proficient: No ABD/GI: Yes: Blood Streaked Bowels, Rectal Bleeding, Abdominal cramping. No: Constipated, Diarrhea, Nausea, Poor Appetite, Poor Fluid Intake, Vomiting Musculoskeletal: No: Back Pain All Other Systems: Reviewed and Negative *Physical Exam - Vital Signs Last Vital Signs Temp Pulse Resp BP Pulse Ox 98.3 F 64 14 114/69 100 08/20/17 20:51 08/20/17 20:51 08/20/17 20:51 08/20/17 20:51 08/20/17 20:51 - Physical Exam General Appearance: Yes: Nourished, Appropriately Dressed. No: Apparent Distress, Mild Distress, Moderate Distress, Severe Distress Neck: positive: Trachea midline, Supple. negative: Rigid, Stridor, Lymphadenopathy (R), Lymphadenopathy (L), Tender lateral, Tender midline Respiratory/Chest: positive: Lungs Clear, Normal Breath Sounds. negative: Chest Tender, Respiratory Distress, Accessory Muscle Use, Labored Respiration, Rapid RR, Decreased Breath Sounds, Rhonchi, Stridor, Wheezing Cardiovascular: positive: Regular Rhythm, Regular Rate Gastrointestinal/Abdominal: positive: Normal Bowel Sounds, Soft. negative: Tender, Pulsatile Mass, Increased Bowel Sounds, Decreased BS, Distended, Guarding, Rebound, Tenderness Rectal Exam: positive: heme negative stool, hemorrhoids (External) Musculoskeletal: positive: Normal Inspection. negative: CVA Tenderness Extremity: positive: Normal Capillary Refill, Normal Inspection, Normal Range of Motion. negative: Coldness, Pedal Edema, Swelling, Calf Tenderness, Erythema , Inflammation Integumentary: positive: Normal Color, Dry, Warm. negative: Cyanotic, Erythema , Rash, Swelling Neurologic: positive: bookstore clerk II-XII NML intact, Fully Oriented, Alert, Normal Mood/ Affect, Normal Response, Motor Strength 5/5 ED Treatment Course - LABORATORY CBC & Chemistry Diagram: 08/20/17 22:30 08/20/17 22:30 - RADIOLOGY Radiology Studies Ordered: Category Date Time Status ABDOMEN & PELVIS CT W/O CONTR [CT] Stat CT Scan 08/20/17 22:14 Ordered Medical Decision Making - Medical Decision Making 08/21/17 00:46 Spoke with ANGELINE Archer. Discussed labs, radiology reports. Patient to be transported back to [facility]. Patient to have outpatient follow-up with GI. *DC/Admit/Observation/Transfer Diagnosis at time of Disposition: External hemorrhoid, PCP dependence - Discharge Dispostion Disposition: TRANSFER ACUTE CARE/OTHER HOSP Condition at time of disposition: Stable Admit: No - Referrals Referrals: Guilherme Cleveland MD [Staff Physician] - - Patient Instructions Printed Discharge Instructions: DI for Hemorrhoids, DI for Rectal Bleeding Additional Instructions: Follow up with Dr. Cleveland (Gastroenterology) this week to schedule follow up appointment. Return if symptoms worsen or any concerns for further evaluation. Print Language: KOREAN
[2017-08-20 22:40] LABS: BASOPHIL 0.8 % (0-2.0); EOSINOPHIL 3.4 % (0-4.5); MCH 22.2 pg (25.7-33.7); MEAN CELL VOLUME 67.3 fl (80-96); MEAN PLT VOLUME 8.8 fl (7.5-11.1); NEUTROPHILS 59.5 % (42.8-82.8); PLATELET COUNT 345 K/MM3 (134-434); RDW 22.7 % (11.6-15.6); WHITE BLOOD COUNT 8.6 K/mm3 (4.0-10.0)
[2017-08-20 22:41] LABS: URINE APPEARANCE CLEAR; URINE BILIRUBIN NEGATIVE (NEGATIVE); URINE BLOOD NEGATIVE (NEGATIVE); URINE COLOR COLORLESS; URINE GLUCOSE (UA) NEGATIVE (NEGATIVE); URINE KETONE NEGATIVE (NEGATIVE); URINE NITRITE NEGATIVE (NEGATIVE); URINE PROTEIN NEGATIVE (NEGATIVE); URINE UROBILINOGEN NEGATIVE mg/dL (0.2-1.0)
[2017-08-20 23:17] LABS: ALBUMIN 3.2 g/dl (3.4-5.0); ALK PHOS 77 U/L (45-117); ANION GAP 6 (8-16); BILIRUBIN,TOTAL 0.1 mg/dL (0.2-1.0); CALCIUM 8.7 mg/dL (8.5-10.1); CO2 28 mmol/L (21-32); CREATININE 0.7 mg/dL (0.55-1.02); GLUCOSE,RANDOM 78 mg/dL (74-106); SGOT/AST 10 U/L (15-37); SGPT/ALT 26 U/L (12-78); TOT PROT 7.1 g/dl (6.4-8.2)
--- NOTE | 2017-08-20 23:25 | PDOC ---
*Physical Exam - Vital Signs Last Vital Signs Temp Pulse Resp BP Pulse Ox 98.3 F 64 14 114/69 100 08/20/17 20:51 08/20/17 20:51 08/20/17 20:51 08/20/17 20:51 08/20/17 20:51 ED Treatment Course - LABORATORY CBC & Chemistry Diagram: 08/20/17 22:30 08/20/17 22:30 - ADDITIONAL ORDERS Additional order review: Laboratory Results 08/20/17 08/20/17 08/20/17 22:30 22:30 22:30 Sodium 138 Potassium 4.4 Chloride 104 Carbon Dioxide 28 Anion Gap 6 L BUN 13 Creatinine 0.7 Creat Clearance w eGFR > 60 Random Glucose 78 Calcium 8.7 Total Bilirubin 0.1 L D AST 10 L ALT 26 Alkaline Phosphatase 77 Total Protein 7.1 Albumin 3.2 L Urine Color Colorless Urine Appearance Clear Urine pH 7.0 Urine Protein Negative Urine Glucose (UA) Negative Urine Ketones Negative Urine Blood Negative Urine Nitrite Negative Urine Bilirubin Negative Urine Urobilinogen Negative Urine HCG, Qual Negative Stool Occult Blood Negative 08/20/17 22:30 RBC 4.34 MCV 67.3 L MCHC 33.0 RDW 22.7 H MPV 8.8 Neutrophils % 59.5 Lymphocytes % 29.2 D Monocytes % 7.1 Eosinophils % 3.4 Basophils % 0.8 - Medications Given in the ED: ED Medications Discontinued Medications Generic Name Dose Route Start Last Admin Trade Name Freq PRN Reason Stop Dose Admin Sodium Chloride 1,000 mls @ 1,000 mls/hr 08/20/17 22:14 08/20/17 22:43 Normal Saline - IV 08/20/17 23:13 1,000 mls/hr ASDIR STA Administration Medical Decision Making - Medical Decision Making 08/20/17 23:25 agree with care from ANGELINE Palacios *DC/Admit/Observation/Transfer Diagnosis at time of Disposition: External hemorrhoid, PCP dependence - Discharge Dispostion Disposition: TRANSFER ACUTE CARE/OTHER HOSP Condition at time of disposition: Stable - Referrals Referrals: Guilherme Cleveland MD [Staff Physician] - - Patient Instructions Printed Discharge Instructions: DI for Hemorrhoids, DI for Rectal Bleeding Additional Instructions: Follow up with Dr. Cleveland (Gastroenterology) this week to schedule follow up appointment. Return if symptoms worsen or any concerns for further evaluation. Print Language: BELARUSIAN
[2017-08-20 23:26] LABS: ANISOCYTOSIS 2+; HYPOCHROMIA FEW; MICROCYTOSIS 1+; PLATELET ESTIMATE ADEQUATE (NORMAL)
[2017-08-21 01:42] VITALS: BP 115/70; PULSE 69
[2017-08-21 09:13] LABS: URINE LEUK ESTERASE Negative (NEGATIVE)
--- NOTE | 2017-08-21 13:07 | EKG ---
Test Reason : Blood Pressure : / mmHG Vent. Rate : 057 BPM Atrial Rate : 057 BPM P-R Int : 124 ms QRS Dur : 090 ms QT Int : 420 ms P-R-T Axes : 038 046 046 degrees QTc Int : 408 ms SINUS BRADYCARDIA OTHERWISE NORMAL ECG WHEN COMPARED WITH ECG OF 09-AUG-2017 22:20, NO SIGNIFICANT CHANGE WAS FOUND Confirmed by ALBA HUMPHREY MD ([id number]) on 08/21/2017 1:07:20 PM Referred By: Confirmed By:ALBA HUMPHREY MD
== END 2017-08-21 01:41 | disposition short-term general hospital (02) ==
LOC: JER 20:37
PROC: 3E0337Z Introduction of Electrolytic and Water Balance Substance into Peripheral Vein, Percutaneous Approach (ICD-10-PCS; principal; 2017-08-20)
DX: K64.4 Residual hemorrhoidal skin tags (principal); F11.20 Opioid dependence, uncomplicated; D64.9 Anemia, unspecified; F17.210 Nicotine dependence, cigarettes, uncomplicated
CPT/HCPCS: 36415; 74176-TC; 80053; 81003; 82272; 84703; 85025; 86850; 86900; 86901; 93005; 93010; 99282-25